=== PATIENT | female | born 1975 | race African-American/Black ===

== ENCOUNTER 2022-10-13 11:21 | Outpatient (REF) | payer MEDICAID, SELFPAY ==
[2022-10-13 17:37] LABS: Anion Gap 17 (12-20); Blood Urea Nitrogen 11 mg/dL (9-16); Calcium 10.3 mg/dL (8.4-10.2); Carbon Dioxide 25 mmol/L (22-29); Chloride 101 mmol/L (96-108); Estimated Glomerular Filt Rate > 60; Glucose Random 80 mg/dL (60-115); Potassium 3.6 mmol/L (3.3-5.1); Sodium 139 mmol/L (135-145)
[2022-10-20 15:28] LABS: Creatinine Random Urine 100 mg/dL (20-275); Metanephrine, Free Rand Ur 67 mcg/g cr (33-192); Normetanephrine, Free Rand Ur 271 mcg/g cr (85-514); Total Metanephrine, Free RU 338 mcg/g cr (155-608)
== END 2022-10-13 11:22 | disposition home or self-care (01) ==
LOC: HO.CHCLDS 11:21
PROVIDERS: Visit Provider Internal Medicine
DX: I10 Essential (primary) hypertension (principal)
CPT/HCPCS: 36415; 80048; 83835

== ENCOUNTER 2022-10-16 09:51 | Outpatient (REF) | payer MEDICAID, SELFPAY ==
[2022-10-23 16:02] LABS: Aldosterone/Renin Ratio 3.8 Ratio (0.9-28.9); Plasma Renin Activity 2.65 ng/mL/h (0.25-5.82)
== END 2022-10-16 09:52 | disposition home or self-care (01) ==
LOC: HO.CHCLDS 09:51
PROVIDERS: Visit Provider Internal Medicine
DX: I10 Essential (primary) hypertension (principal)
CPT/HCPCS: 82088; 82542

== ENCOUNTER → 2022-10-26 09:37 | Outpatient (REF) | payer MEDICAID, SELFPAY ==
--- NOTE | 2022-10-26 09:39 | HM_ITS ---
* Total monitoring time 2 days. * Underlying rhythm is sinus. Average ventricular rate 54/Min. Range 39 to 100/Min. * About 81% of the time, rate < 60/Min. Some strips suggest junctional rhythm. Likely during sleep hours as they are brush cutter. * Rare PVCs. Some couplets. One run of 4 beats. * No significant pauses or AV blocks. * Rapid/fast heartbeat described in diary correlates with sinus rhythm/sinus bradycardia, junctional rhythm as well as PVCs. MTDD
== END ==
LOC: HO.CARD 09:37
PROVIDERS: PCP Internal Medicine; Visit Provider Internal Medicine
DX: R00.1 Bradycardia, unspecified (principal)
CPT/HCPCS: 93225

== ENCOUNTER → 2022-10-26 09:39 | Outpatient (BNV) | payer MEDICAID, SELFPAY | PROVIDERS: PCP Internal Medicine; Visit Provider Internal Medicine | DX: I49.3 Ventricular premature depolarization (principal) | CPT/HCPCS: 93227 ==

== ENCOUNTER 2023-01-19 20:09 | Outpatient (REF) | payer MEDICAID, SELFPAY ==
[2023-01-22 06:23] LABS: HPV mRNA E6/E7 rflx Not Detected (Not Detected)
== END 2023-01-19 20:10 | disposition home or self-care (01) ==
LOC: HO.CHCLNP 20:09
PROVIDERS: Visit Provider Advanced Practice Midwife
DX: Z01.419 Encounter for gynecological examination (general) (routine) without abnormal findings (principal)
CPT/HCPCS: 87624; 88142

== ENCOUNTER 2024-06-08 10:38 | Outpatient (REF) | payer MEDICAID, SELFPAY ==
[2024-06-08 14:45] LABS: Cholesterol 187 mg/dL (<200); HDL Cholesterol 52 mg/dL (>40); LDL Cholesterol Calculated 113 mg/dL (<100); Triglycerides 111 mg/dL (<150)
[2024-06-09 08:27] LABS: HIV AB/AG Nonreactive (Nonreactive); HIV Num 1 0.06 S/CO (0.00-0.99); ~HepC Num1 0.09 S/CO (0.00-0.79); ~Hepatitis C Antibody Nonreactive (Nonreactive)
== END 2024-06-08 10:39 | disposition home or self-care (01) ==
LOC: HO.CHCLDS 10:38
PROVIDERS: Visit Provider Internal Medicine
DX: I10 Essential (primary) hypertension (principal)
CPT/HCPCS: 36415; 80061; 86803; 87389

== ENCOUNTER 2024-09-25 09:47 | Outpatient (REF) | payer SELFPAY ==
--- OUTSIDE RECORDS SUMMARY | 2024-09-25 10:19 | XMS_ITS | Data Portability ---
Author Organization [place] - [facility], Allergy Address [address] [facility] [address] [place] [address] Assessment Encounter Date Assessment Date Assessment LastModified by Organization Details LastModified Time 10/08/2023 10/08/2023 48 year old female present for evaluation of hearing loss. Otologic exam is unremarkable today. Can use mineral oil for itching and should avoid Q tip use. Audiometric testing consistent with SNHL bilaterally but may be suprathreshold. Will retest in 6 months. Can pursue amplification at this time. Copy of hearing test and medical clearance were given along with [facility] health provider sheet. [email or web address] Not available 10/08/2023 14:26:43 Plan of Treatment Reminders Order Date Submit Date Provider Last Modified By Organization Details Last Modified Time Details Appointments None record ed. Lab None record ed. Referral None record ed. Procedures None record ed. Surgeries None record ed. Imaging None record ed. Medication Orders None record ed. Patient TargetsNo targets recorded. Patient InstructionsNo instructions recorded. Reason for Referral None Reported. Results Created Date Observation Date Name Description Value Unit Range Abnormal Flag Note LastModifiedBy Organization Detail LastModifiedTime 10/11/19 24 audio gram No observ ation record ed. [email or web address] Not Available 09/20 16:23:09 Result Notes None recorded. Problems Name Problem SNOMED Code Status Onset Date Resolution Date Notes Provider Name and Address Organization Details Recorded Time Sensorineural hearing loss of bilateral ears 347356727 Active 2023 Lupe card [place] - [facility] 14:00:57 Itching of ear 346273745 Active 2023 ROCKY AQUINO PA-C [address], [address] - [facility] 14:26:50 Problem Notes None recorded. Procedures Surgical History Date Name Laterality Status Provider Name and Address Organization Details Recorded Time 10/08/19 Comp Audio with Tymps - 49069 & 15673 completed Lupe Archer [place] - [facility] 10/08/2023 14:00:48 10/08/19 OAE distortion product, comprehensive - 38978 completed Lupe Archer [place] - [facility] 10/08/2023 14:11:13 Imaging Results None recorded. Procedure Notes None recorded. Medical Equipment None Reported. Medications Name Sig Start Date Stop Date Status Note LastModified by Organization Details LastModified Time econazole nitrate 1 % topical cream APPLY TO THE AFFECTED AREA(S) EVERY MORNING active Not Available Not Available No t Available fluocinolone 0.01 % topical body oil APPLY TOPICALLY TWICE DAILY, MASSAGE INTO ITCHY AREAS OF SCALP active Not Available Not Available No t Available gabapentin 300 mg capsule TAKE ONE CAPSULE BY MOUTH AT BEDTIME active Not Available Not Available No t Available hydrocortison e 2.5 % topical cream APPLY TOPICALLY TO AFFECTED AREA(s) TWICE DAILY active Not Available Not Available No t Available gabapentin 100 mg capsule TAKE ONE CAPSULE EVERY NIGHT AT BEDTIME active Not Available Not Available No t Available naproxen 500 mg tablet TAKE ONE TABLET TWICE DAILY active Not Available Not Available No t Available clindamycin 1 % lotion APPLY TO FACE EVERY MORNING FOR ACNE AND CUSTOMER SUPPORT EXECUTIVE SPOTS ON THE CHEEKS. active Not Available Not Available No t Available hydrochloroth iazide 12.5 mg tablet TAKE ONE TABLET BY MOUTH EVERY MORNING active Not Available Not Available No t Available diclofenac 1 % topical gel APPLY 2 GRAM'S TO AFFECTED AREA(s) TWICE DAILY NEEDED active Not Available Not Available No t Available Vitals Date Recorded Body height Body mass index (BMI) Body weight Provider Name and Address Organization Details Last Updated DateTime 10/08/2023 172.72 cm 28.7 kg/m2 77412.96 g Brenda Zheng [place] - [facility] 10/08/2023 14:15:24 Social History None recorded. Functional Status None recorded. Mental Status None recorded. Family History Nothing Reported. Medical History No medical history recorded. Gynecological HistoryNo gynecological history recorded. Obstetrics History GPAL:G 0 P 0 0 0 0 Past Encounters Encounter ID Performer Location Encounter Start Date Encounter Closed Date Diagnosis/Indication Diagnosis SNOMED-CT Code Diagnosis ICD10 Code Diagnosis Note [id number] ROCKY AQUINO PA-C [facility] [address] [place] [address] 10/08/2023 12:59:12 10/08/2023 14:36:03 Sensorineural hearing loss of bilateral ears 518655840 H90.3 Audiologic al evaluation results: Right ear: Essentiall y mild sensorineu ral hearing loss with excellent word recognitio n. Left ear: Essentiall y mild sensorineu ral hearing loss with excellent word recognitio n. Tympanomet ry: Right Ear:Type A Left Ear:Type A Itching of ear 856099274 L29.8 Health Concerns Section Related Observation LastModified by Organization Detai ls LastModified Time None Recorded Concern Status LastModified by Organization Details LastModified Time None Recorded Advance Directives Directive None Recorded Payers Insurance Date Sequence Insurance Name Policy Number Policy Coyle Covered Member ID Coyle Member ID Guarantor Name 04/07/2024 1 [facility] (O) [id number] Anita [facility] [id number] Notes Date Note Type Note Provider Name and Address Organization Details Recorded Time 10/08/2023 text/html 48 year old female presents for evaluation of hearing loss. She also has itchy ear. Admits to occasional Q tip use. Hearing loss is bilateral without tinnitus and slow over time. ROCKY AQUINO PA-C [address] [place] [address], [id number], [facility] - [facility] 10/08/2023 14:28:29 OBGyn Episode No OBEpisode recorded.
--- OUTSIDE RECORDS SUMMARY | 2024-09-25 10:19 | XMS_ITS | Referral Summary ---
Author Organization [facility] Address [address] [place] [address] Care Team Providers Care Supervisor Sound Technician Name Role Phone Janki Lance Primary Care Provider + [phone] Allergies No known active allergies Medications multivitamin (THERAGRAN) tablet Take 1 tablet by mouth daily. Active acetaminophen (TYLENOL) 325 mg tablet Take 2 tablets (650 mg total) by mouth every 6 hours. 28 tablet 06/06/2020 Active lactulose 10 gram/15 mL solution Take 20 g by mouth once a day. Active cholecalciferol (VITAMIN D3) 1,000 unit tablet Take 1,000 Units by mouth daily. Active ascorbic acid (VITAMIN C ORAL) Active hydroCHLOROthia zide (HYDRODIURIL) 12.5 mg tablet Take 12.5 mg by mouth daily. 10/12/2022 Active clindamycin (CLEOCIN T) 1 % lotionIndicatio ns:Acne vulgaris Apply to face every morning for acne and community health education coordinator spots on the cheeks. 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 Prediabetes 07/15/2020 Umbilical hernia 07/15/2020 Uterine leiomyoma 07/15/2020 Ganglion of right wrist 07/08/2020 Overview (07/08/2020): Added automatically from request for surgery [id number] Latent tuberculosis by blood test 02/13/2019 Resolved Problems Problem Noted Date Diagnosed Date Resolved Date Menorrhagia 07/15/2020 01/06/2022 Dysmenorrhea 06/05/2020 01/06/2022 Overview (12/20/2021): Diagnosis updated to reflect regulatory changes Menorrhagia with irregular cycle 06/04/2020 01/06/2022 Social History Tobacco Use Types Packs/Day Years Used Date Smoking Tobacco: Never Smokeless Tobacco: Never Tobacco Cessation:Counseling Given: Not Answered Alcohol Use Standard Drinks/Week Comments Yes 0 (1 standard drink = 0.6 oz pur e alcohol) Rare Comments No Sex and Gender Information Value Date Recorded Sex Assigned at Female 07/29/2020 2:06 PM EDT Legal Sex Female 4:14 PM EDT Gender Identity Female 07/29/2020 2:06 PM EDT Sexual Orientation Straight 07/29/2020 2: 06 PM EDT Last Filed Vital Signs Vital Sign Reading Time Taken Comments Blood Pressure 112/62 01/06/2022 9:01 AM EDT Pulse 49 06/06/2020 11:00 AM EDT Temperature 36.9 C (98.4 F) 06/06/2020 11:00 AM EDT Respiratory Rate 18 06/06/2020 11:0 0 AM EDT Oxygen Saturation 100% 06/06/2020 11: 00 AM EDT Inhaled Oxygen Concentration - - Weight 80.6 kg (177 lb 12.8 oz) 01/06/2022 9:01 AM EDT Height 165.1 cm (5' 5 ) 06/04/2020 5:32 AM EDT Body Mass Index 29.59 06/04/2020 5:32 AM EDT Plan of Treatment Not on file Procedures * Due to [place] [employer] law, this organization might not be sharing negative HIV tests. Procedure Name Priority Date/Time Associated Diagnosis Comments ISMAEL BILATERAL SCREENING DIGITAL MAMMOGRAM WITH ALHAJI Routine 03/31/2023 9:33 AM EST Encounter for screening mammogram for malignant neoplasm of breast from Last 3 Months or Most Recently Relevant to Health Maintenance Results * Due to [place] [employer] [place] law, this organization might not be sharing negative HIV tests. * ISMAEL Bilateral Screening Digital Mammogram With Alhaji (03/31/2023 9:33 AM EST) Anatomical Region Laterality Modality Breast Bilateral Mammography Narrative 03/31/2023 9:46 AM EST EXAMINATION ISMAEL Bilateral Screening Digital Mammogram With Alhaji. INDICATION Anita Ocasio is a 47 y.o. female and is seen for: ISMAEL Bilateral Screening Digital Mammogram With Alhaji. R2 CAD was used in the interpretation of this study. COMPARISON Prior mammograms dating back to 2020 Bilateral Breast Findings: The breasts have scattered areas of fibroglandular density. No significant masses, calcifications or other abnormalities are seen. IMPRESSION BI-RADS ATLAS category (overall): 1 - Negative MANAGEMENT Routine Screening Mammogram in 1 Year is recommended for bilateral. The patient was entered into a reminder system with a target date for their next mammogram. If this radiology report contains a blank impression section, it is an incomplete radiology report. Please contact the interpreting radiologist or applicable radiology division as soon as possible to obtain the completed interpretation. Joseline Sinclair NP IMG BI PROCEDURES Final Result from Last 3 Months or Most Recently Relevant to Health Maintenance Insurance /[facility] on file [facility] * Guarantor: [employer], Client Account Type Relation to Patient Date of Phone Billing Address Corporate Other Advance Directives Documents on File Type Date Recorded Patient Coconut Jelly Roller Expl anation Health Care Proxy 06/04/2020 5:58 AM * Full Code (Latest Code Status on File) Date Activated Date Inactivated Comments 06/04/2020 5:21 AM 06/06/2020 2:28 PM Healthcare Agents on File Name Relationship Healthcare Agent Relationshi p Communication Fami Adewumi Friend Health Care Agent Care Teams Supervisor Sound Technician Relationship Specialty Start Date End Date Janki Lance [address] [place] [address] PCP - General Internal Medicine 03/31/23
--- OUTSIDE RECORDS SUMMARY | 2024-09-25 10:19 | XMS_ITS | Encounter Summary ---
Author Organization [employer] Address [address] [facility] [address] [place] [address] Care Team Providers Care Drug Safety Associate Name Role Phone Janki Lance MD Primary Care Provider Reason for Visit * Reason Comments Med Refill Encounter Details Date Type Department Care Team ([facility] st Contact Info) Description 09/25/2024 Refill [facility] MED & PEDS [address] [place] [address] Janki Lance MD [address] [place] [address] History of nummular eczema Social History Tobacco Use Types Packs/Day Years Used Date Smoking Tobacco: Never Passive Smoke Exposure: Never Smokeless Tobacco: Never Alcohol Use Standard Drinks/Week Comments Never 0 (1 standard drink = 0.6 oz pur e alcohol) Depression Answer Date Recorded Patient Health Questionnaire-9 Score 0 06/08/2024 Patient Health Questionnaire-9 Score 0 06/08/2024 Last PHQ-9: Questionnaire Data Not on file 0 06/08/2024 Housing Stability Answer Date Recorded What is your housing situation today? I have deisy la 10/07/[address] you li ve. Do you have problems with any of the following? None of the above 10/07/2023 Food Insecurity Answer Date Recorded Within the past 12 months, y ou worried that your food would run out before you got money to buy more: Never True 10/07/2023 Within the past 12 months,th e food you bought just didn't last and you didn't have enough money to get more: Never True Transportation Answer Date Recorded In the past 12 months, has l ack of transportation kept you from medical appts, meetings, work or from getting things needed for daily living? No 10/07/2023 Utilities Answer Date Recorded In the past 12 months, has t he electric, gas, oil or water company threatened to shut off services in your home? No 10/07/2023 Depression Answer Date Recorded Patient Health Questionnaire-2 Score 0 06/08/2024 Internet Access Answer Date Recorded Internet Access Q1 Yes 06/01/2024 Internet Access Q2 Not on file 06/01/2024 Comments No Sex and Gender Information Value Date Recorded Sex Assigned at Female 10/07/2023 6:29 PM EDT Legal Sex Female 6:04 PM EDT Gender Identity Female 10/07/2023 6:04 PM EDT Sexual Orientation Straight 10/07/2023 6: 04 PM EDT documented as of this encounter Plan of Treatment Upcoming Encounters Date Type Department Care Team (Late st Contact Info) Description 10/06/2024 9:30 AM EDT Clinical Support [facility] MED & PEDS [address] [place] [address] 10/27/2024 10:00 AM EDT Office Visit [facility] ADULT DENTAL [address] [place] [address] Arturo Lance 12/04/2024 9:15 AM EDT Office Visit [facility] MED & PEDS [address] [place] [address] Janki Lance MD [address] [place] [address] documented as of this encounter Visit Diagnoses Diagnosis History of nummular eczema documented in this encounter Additional Health Concerns Assessment Noted Time PHQ-9 Depression Total Score: 0 06/09/19 25 9:42 AM EDT documented as of this encounter Care Teams Drug Safety Associate Relationship Specialty Start Date End Date Janki Lance MD [address] [place] [address] PCP - General Internal Medicine 12/04/22 documented as of this encounter
[2024-09-25 14:35] LABS: MANUAL DIFF FLAG NO
[2024-09-25 14:47] LABS: Hematocrit 36.3 % (37.0-47.0); Hemoglobin 12.4 g/dl (12.0-16.0); Imm Gran Abs Auto 0.02 X10*3/uL (0.00-0.03); Imm Gran Pct Auto 0.4 % (0.0-0.4); Lymphocytes Absolute Auto 1.9 X10*3/uL (1.2-4.9); Mean Corpuscular HGB Conc 34.2 g/dl (31.0-35.0); Mean Corpuscular Hemoglobin 28.4 pg (27.0-33.0); Mean Corpuscular Volume 83.1 fL (80.0-98.0); NRBC Abs Auto 0.000 X10*3/uL (0.0-0.012); NRBC Pct Auto 0.0 /100WBC (0.0-0.2); Platelet Count 200 X10*3/uL (160-400); Red Blood Count 4.37 X10*6/uL (4.20-5.50); White Blood Count 5.3 X10*3/uL (4.8-10.8)
[2024-09-25 15:08] LABS: Anion Gap 12 (12-20); Blood Urea Nitrogen 14 mg/dL (9-16); Calcium 9.0 mg/dL (8.4-10.2); Carbon Dioxide 25 mmol/L (22-29); Chloride 105 mmol/L (96-108); Estimated Glomerular Filt Rate > 60; Potassium 3.9 mmol/L (3.3-5.1); Sodium 138 mmol/L (135-145)
== END 2024-09-25 09:48 | disposition home or self-care (01) ==
LOC: HO.CHCLDS 09:47
PROVIDERS: Visit Provider Pediatrics
DX: I10 Essential (primary) hypertension (principal)
CPT/HCPCS: 36415; 80048; 82043; 82570; 85025

== ENCOUNTER 2025-03-19 14:53 | Outpatient (REF) | payer SELFPAY ==
--- OUTSIDE RECORDS SUMMARY | 2025-03-19 14:00 | XMS_ITS | Encounter Summary ---
Author Organization [employer] Address [address] [place] [address] [address] [place] [address] Care Team Providers Care Beading Sawyer Name Role Phone Janki Lance MD Primary Care Provider [phone] Reason for Visit * Reason Comments Vaginitis/Bacterial Vaginosis Encounter Details Date Type Department Care Team ([facility] Contact Info) Description 03/19/2025 2:00 PM EST Office Visit [facility] CHC MED & PEDS [address] [place] [address] Carisa Barraza MD [address] [place] [address] Acute vaginitis (Primary Dx) Social History Tobacco Use Types Packs/Day Years [...] PM EDT documented as of this encounter Last Filed Vital Signs Vital Sign Reading Time Taken Comments Blood Pressure 142/68 03/19/2025 1:44 PM EST Pulse 54 03/19/2025 1:44 PM EST Temperature 36.3 C (97.4 F) 03/19/2025 1:44 PM EST Respiratory Rate 16 03/19/2025 1:44 PM EST Oxygen Saturation 99% 03/19/2025 1:44 PM EST Inhaled Oxygen Concentration - - Weight 78 kg (172 lb) 03/19/2025 1:44 PM EST Height 170.2 cm (5' 7 ) 03/19/2025 1:44 PM EST Body Mass Index 26.94 03/19/2025 1:44 PM EST documented in this encounter Progress Notes * Carisa Barraza MD - 03/19/2025 2:00 PM EST Subjective Patient ID: Anita Ocasio is a 49 y.o. female who presents for Vaginitis/Bacterial Vaginosis. Anita Ocasio presents with symptoms consistent with a yeast infection. She reports vaginal itching and white discharge, which she identified by self- examination. She has a history of yeast infections, with the last occurrence approximately 10 years ago. The current symptoms are similar to herprevious experience with yeast infections. She denies being . The patient also mentions having elevated blood pressure during today's visit, which she attributesto not taking her morning medications due to a busy schedule involving insurance issues, prescription pickup, work obligations, and not having eaten yet. 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 She typically prefers to take her vitamins with food. Additionally, the patient inquired about scheduling her next Pap smear. She had a hysterectomy for fibroids (not cancer-related) and her last Pap smear was performed in 2022, which was normal with noHPV detected. She has a history of abnormal Pap smears prior to her hysterectomy. Medical History - Hypertension, currently on medication - History of yeast infections, last occurrence approximately 10 years ago - History of abnormal Pap smears prior to hysterectomy - Hysterectomy performed for fibroids Surgical History - Hysterectomy for fibroids Medications and Supplements - Blood pressure medication - Did not take this morning due to busy schedule and not having eaten yet. Plans to take when gets up to go to work. - Vitamins - Prefers taking with food. 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 Review of Systems Objective BP (!) 142/68 (BP Location: Left arm, Patient Position: Sitting, BP Cuff Size: Adult) Pulse 54 Temp 97.4 ??F (36.3 ??C) (Oral) Resp 16 Ht 5' 7 (1.702 m) Wt 172 lb (78 kg) SpO2 99% BMI 26.94 kg/m?? Physical Exam Constitutional: General: She is not in acute distress. Appearance: She is not ill-appearing. HENT: Head: Normocephalic and atraumatic. Nose: No congestion. Pulmonary: Effort: Pulmonary effort is normal. No respiratory distress. Breath sounds: Normal breath sounds. Musculoskeletal: Cervical back: Normal range of motion. Neurological: General: No focal deficit present. Mental Status: She is alert. Psychiatric: Mood and Affect: Mood normal. Assessment/Plan Problem List Items Addressed This Visit None Visit Diagnoses Acute vaginitis - Primary Relevant Orders Bacterial Vaginosis Panel Anita Ocasio presents with vaginal yeast infection symptoms including itching and white discharge, with history of yeast infection 10 years ago. Vaginal yeast infection Assessment: Patient reports vaginal itching and white discharge consistent with yeast infection. She has self-examined and identified white discharge. History of similar symptoms 10 years ago. Patient is confident in self-diagnosis based on previous experience. Clinical presentation is consistent with candidal vulvovaginitis. Plan: - Vaginal swab for culture to confirm diagnosis and rule out bacterial infection - Antifungal treatment options discussed: oral medication every 3 days for 3 doses or topical creamnightly for 7 days - Prescription sent to [facility] pharmacy - Patient will be notified through portal if additional findings on culture - Follow up if symptoms do not improve Hypertension Assessment: Blood pressure elevated during visit. Patient reports missing morning antihypertensive medication due to busy schedule dealing with insurance issues and work obligations. Has not eaten yet today which may contribute to stress and elevated readings. Plan: - Patient to resume regular medication schedule when returning home from work - Patient prefers to take medications with food Cervical cancer screening Assessment: Patient inquiring about gynecology follow-up. Last Pap smear performed in 2022 was normal with negative HPV testing. Patient has history of hysterectomy for fibroids and prior abnormal Pap smears before hysterectomy. Per previous provider's recommendation, patient requires continued screening for 25 years post-hysterectomy due to history of abnormal Pap smears. Next screening due in 2025, not 2027 as initially calculated. Plan: - Recall appointment scheduled for December 2025 for repeat Pap smear - Patient to follow up in November or December 2025 - Continued screening recommended given prior abnormal Pap smears before hysterectomy Pap smear appointment scheduled for December 2025. documented in this encounter Plan of Treatment Upcoming Encounters Date Type Department Care Team (Late st Contact Info) Description 04/23/2025 9:30 AM EST Office Visit [facility] ADULT DENTAL [address] [place] [address] Arturo Lance Scheduled Orders Name Type Priority Associated Diagnoses Orde r Schedule Bacterial Vaginosis Panel Microbiology Routine Acute vaginitis Ordered: 03/19/2025 documented as of this encounter Visit Diagnoses Diagnosis Acute vaginitis- Primary Unspecified vaginitis and vulvovaginitis documented in this encounter Additional Health Concerns Assessment Noted Time PHQ-9 Depression Total Score: 0 06/09/19 25 9:42 AM EDT documented as of this encounter Care Teams Beading Sawyer Relationship Specialty Start Date End Date Janki Lance MD [address] [place] [address] PCP - General Internal Medicine 12/04/22 documented as of this encounter
--- OUTSIDE RECORDS SUMMARY | 2025-03-19 17:16 | XMS_ITS | Encounter Summary ---
Author Organization [employer] Address [address] [place] [address] [address] [place] [address] Care Team Providers Care Curriculum Development Specialist Name Role Phone Janki Lance MD Primary Care Provider [phone] Reason for Visit * Reason Onset Date Comments New Patient 10/30/2022 Encounter Details Date Type Department Care Team (Late st Contact Info) Description 10/30/2022 Telephone [facility] MEDICINE [address] [place] [address] Maksim Parish MD [address] [place] [address] New Patient Social History Tobacco Use Types Packs/Day Years Used Date Smoking Tobacco: Never Passive Smoke Exposure: Never Smokeless Tobacco: Never Alcohol Use Standard Drinks/Week Comments Never 0 (1 standard drink = 0.6 oz pur e alcohol) Comments Unknown Sex and Gender Information Value Date Recorded Sex Assigned at Female 10/07/2023 6:29 PM EDT Legal Sex Female 6:04 PM EDT Gender Identity Female 10/07/2023 6:04 PM EDT Sexual Orientation Straight 10/07/2023 6: 04 PM EDT documented as of this encounter Miscellaneous Notes * Telephone Encounter - Adilia Mirza - 10/30/2022 3:35 PM EDT 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 EFFECTIVE SINCE 10/30/2022 documented in this encounter Plan of Treatment Upcoming Encounters Date Type Department Care Team (Late st Contact Info) Description 04/23/2025 9:30 AM EST Office Visit [facility] ADULT DENTAL [address] [place] [address] Arturo Lance documented as of this encounter Visit Diagnoses Not on filedocumented in this encounter Care Teams Curriculum Development Specialist Relationship Specialty Start Date End Date Janki Lance MD [address] [place] [address] PCP - General Internal Medicine 12/04/22 documented as of this encounter
--- OUTSIDE RECORDS SUMMARY | 2025-03-19 17:16 | XMS_ITS | Clinical Summary ---
Author Organization [facility] Address [address] [place] [address] Care Team Providers Care Electric Organ Checker Name Role Phone Janki Lance Primary Care Provider + [phone] Allergies No known active allergies Medications multivitamin [...] to face every morning for acne and science teacher spots on the cheeks. 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 Prediabetes 07/15/2020 Umbilical hernia 07/15/2020 Uterine leiomyoma 07/15/2020 Ganglion of right wrist 07/08/2020 Overview (07/08/2020): Added automatically from request for surgery [id number] Latent tuberculosis by blood test 02/13/2019 Resolved Problems Problem Noted Date Diagnosed Date Resolved Date Menorrhagia 07/15/2020 01/06/2022 Dysmenorrhea 06/05/2020 01/06/2022 Overview (12/20/2021): Diagnosis updated to reflect regulatory changes Menorrhagia with irregular cycle 06/04/2020 01/06/2022 Family History Medical History Relation Name Comments No Known Problems Brother Diabetes Father Diabetes Mother Hypertension Mother No Known Problems Sister Breast cancer Neg Hx Ovarian cancer Neg Hx Uterine cancer Neg Hx Relation Name Status Comments Brother Father Alive Mother Alive Sister Social History Tobacco Use Types Packs/Day Years [...] 06/04/2020 5:32 AM EDT Plan of Treatment Health Maintenance Due Date Last Done Comments Cologuard 1975 Colon Cancer Screening 1975 Colonoscopy 1975 FOBT / Fit Test 1975 Hepatitis C Screening 1975 Sigmoidoscopy 1975 Alcohol/Substance Use Screening 03/22/2024 Depression Screening and Follow-Up 03/22/2024 Social Drivers of Health Annual Screening 03/22/2024 Influenza Vaccine (#1) 2024 12/18/2019, 2018 COVID-19 Vaccine ( season) 2024 05/21/2021, 05/21/2021, 11/15/2020, Additional history exists Mammogram 03/31/2025 03/31/2023, 12/0 07/2021, 07/31/2020 DTaP,Tdap,and Td Vaccines (2 - Td or Tdap) 10/02/2030 10/02/2020 HIV Screening Completed 01/13/2019 Hepatitis B Vaccines Completed 12/18/2019, 09/11/2019, 08/11/2019 Pneumococcal Vaccine: Pediatric (0-5 Years) and At-Risk Patients (6-50 Years) Aged Out No longer eligible based on patient's age to complete this topic Procedures * Due to [place] Etherpad law, this organization might not be sharing negative HIV tests. Procedure Name Priority Date/Time Associated Diagnosis Comments [facility] BILATERAL SCREENING DIGITAL MAMMOGRAM WITH ALHAJI Routine 03/31/2023 9:33 AM EST Encounter for screening mammogram for malignant neoplasm of breast from Last 3 Months or Most Recently Relevant to Health Maintenance Results * Due to [place] Etherpad law, this organization might not be sharing negative HIV tests. * [facility] Bilateral Screening Digital Mammogram With Alhaji (03/31/2023 [...] to obtain the completed interpretation. 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
--- OUTSIDE RECORDS SUMMARY | 2025-03-19 17:16 | XMS_ITS | Encounter Summary ---
Author Organization [employer] Address [address] [place] [address] 7 [place] [address] Care Team Providers Care Coremaker Machine Name Role Phone Janki Lance MD Primary Care Provider [phone] Encounter Details Date Type Department Care Team (Late Contact Info) Description 10/30/2022 Orders Only [facility] [address] [place] [address] Janki Lance MD [address] [place] [address] Primary hypertension (Primary Dx); Junctional rhythm Social History Tobacco Use Types Packs/Day Years [...] Description 04/23/2025 9:30 AM EST Office Visit [facility]ULT [facility] [address] [place] [address] Arturo Lance documented as of this encounter Visit Diagnoses Diagnosis Primary hypertension- Primary Unspecified essential hypertension Junctional rhythm Other specified cardiac dysrhythmias documented in this encounter Care Teams Coremaker Machine Relationship Specialty Start Date End Date Janki Lance MD [address] [place] [phone] PCP - General Internal Medicine 12/04/22 documented as of this encounter
--- OUTSIDE RECORDS SUMMARY | 2025-03-19 17:16 | XMS_ITS | Clinical Summary ---
Author Organization [employer] Address [address] [facility] [address] [place] [address] Care Team Providers Care Call Worker Name Role Phone Janki Lance MD Primary Care Provider [phone] Allergies No known active allergies Medications gabapentin (Neurontin) 100 MG capsuleIndicati ons:Neurodermat itis, localized Take 1 capsule (100 mg) by mouth at bedtime. 90 capsule 3 024 2026 Active Diclofenac Sodium (Voltaren) 1 % gel Use topical BID 100 g 3 024 Active Tirzepatide-Jono ght Management (Zepbound) 2.5 MG/0.5ML solution auto-injectorIn dications:Encou nter for screening mammogram for malignant neoplasm of breast Inject 0.5 mL (2.5 mg) under the skin 1 (one) time per week. 2 mL 1 025 Active hydrocortisone 2.5 % creamIndication s:History of nummular eczema Apply topically 2 times daily. 28.35 g 025 Active senna-docusate sodium (Senokot-S) 8.6-50 MG tabletIndicatio ns:Screening for colon cancer Take 1 tablet by mouth Once per day. 30 tablet 11 03/19/20 25 11:40 AM EST 025 2025 Active losartan-hydroC HLOROthiazide (Hyzaar) 50-12.5 MG tabletIndicatio ns:Throat discomfort,Prim hussain hypertension Take 1 tablet by mouth Once per day. 30 tablet 11 03/19/20 25 11:40 AM EST 025 2025 Active diphenhydrAMINE (BENADryl) 25 MG tabletIndicatio ns:Throat discomfort,Acut e cough Take 1 tablet (25 mg) by mouth if needed at bedtime for itching. 30 tablet 025 Active Zepbound 5 MG/0.5ML solution auto-injectorIn dications:Overw eight INJECT ONE PEN (=5MG) SUBCUTANEOUSLY ONCE A WEEK DIRECTED 2 mL 2 03/19/20 25 11:40 AM EST Active fluconazole (Diflucan) 150 MG tablet Take 1 tablet (150 mg) by mouth every 3rd (third) day. 3 tablet 03/19/20 2:26 PM EST 025 Active Tirzepatide-Jono ght Management (Zepbound) 5 MG/0.5ML solutionIndicat ions:Overweight Inject 5 mg under the skin 1 (one) time per week. 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 Prediabetes 07/15/2020 Umbilical hernia 07/15/2020 Uterine leiomyoma 07/15/2020 Ganglion of right wrist 07/08/2020 Overview (10/12/2023): Added automatically from request for surgery [id number] Latent tuberculosis by blood test 02/13/2019 Encounters Date Type Department Care Team Description 03/19/2025 2:00 PM EST Office Visit [facility] [address] [place], [place] [phone] Carisa Barraza MD Acute vaginitis (Primary Dx) 03/19/2025 Travel 03/14/2025 Refill [facility] [address] [place] [address] Janki Lance MD Overweight 12/21/2024 1:00 PM EDT Office Visit [facility] [address] [place] [address] Janki Lance MD Throat discomfort (Primary Dx); Primary hypertension; Acute cough 12/21/2024 Travel 12/20/2024 Telephone [facility] [address] [place] [address] Janki Lance MD Referral from Last 3 Months Immunizations Immunization Administration Dates Next Due Hep B, adult 12/18/2019,09/11/2019,08/11/2019 Influenza Injectable Quadriv alant Preservative Free IIV4 MDCK 03/02/2023 Influenza injectable quadriv alent preservative free 12/18/2019,12/13/2018 Influenza, Injectable, MDCK, preservative free 12/19/2024,01/05/2024 Tdap 10/02/2020 Family History Medical History Relation Name Comments Diabetes type II Father Diabetes type II Mother Hypertension Mother Relation Name Status Comments Father Mother Social History Tobacco Use Types Packs/Day Years Used Date Smoking Tobacco: Never Passive Smoke Exposure: Never Smokeless Tobacco: Never Tobacco Cessation:Counseling Given: Not Answered Alcohol Use Standard Drinks/Week Comments Never 0 [...] Orientation Straight 10/07/2023 6: 04 PM EDT Last Filed Vital Signs Vital [...] Mass Index 26.94 03/19/2025 1:44 PM EST Plan of Treatment Upcoming Encounters Date Type Department Care Team (Late st Contact Info) Description 04/23/2025 9:30 AM EST Office Visit [facility] [address] [place] [address] Arturo Lance Health Maintenance Due Date Last Done Comments CT Colonography 1977 Colonoscopy 1977 Diabetes: Hemoglobin A1C 1977 FIT 1977 Sigmoidoscopy 1977 Disability Screening 1977 Family Planning (PISQ) 1992 Dental Oral Exam 11/17/2023 05/18/2023, 10/12/2022 Mammogram 03/31/2024 03/31/2023, 12/07/2021, 07/31/2020 COVID-19 Vaccine ( season) 2024 05/21/2021, 11/15/2020 Dental Prophylaxis 11/24/2024 05/23/2024, 0 11/17/2023, 05/18/2023, Additional history exists Dental X-Ray: Bitewings 12/03/2024 12/03/19, 11/17/2023, 10/12/2022 Alcohol/Substance Use Screening 06/08/2025 06/08/2024 Depression Screening 06/08/2025 06/08/2024, 06/09/19 SDOH Screening 06/08/2025 06/08/2024 FOBT 06/20/2025 06/20/2024 Dental X-Ray: Full Mouth 10/13/2025 10/12/2022 Pap Smear 01/19/2026 01/19/2023 Tobacco Screening 03/19/2026 03/19/2025 Colorectal Cancer Screening 06/21/2027 FIT DNA/Cologuard 06/21/2027 06/20/2024 Zoster Vaccines (1 of 2) 06/26/2027 Cervical Cancer Screening 01/20/2028 HPV/Cotest 01/20/2028 01/19/2023 Lipid Panel 06/08/2029 06/08/2024 DTaP/Tdap/Td Vaccines (2 - Td or Tdap) 10/02/2030 10/02/2020 RSV Patients and Patients Aged 60 years or older (1 - 1-dose 75+ series) 2052 Hepatitis B Vaccines Completed 12/18/2019, 09/11/2019, 08/11/2019 HIV Screening Completed 06/08/2024 Hepatitis C Screening Completed 06/08/2024 Influenza Vaccine Completed 12/19/2024, , 03/02/2023, Additional history exists HIB Vaccines Aged Out No longer eligi ble based on patient's age to complete this topic HPV Vaccines Aged Out No longer eligi ble based on patient's age to complete this topic Hepatitis A Vaccines Aged Out No long er eligible based on patient's age to complete this topic IPV Vaccines Aged Out No longer eligi ble based on patient's age to complete this topic Meningococcal B Vaccine Aged Out No l onger eligible based on patient's age to complete this topic Meningococcal Vaccine Aged Out No jose maria g eligible based on patient's age to complete this topic Pneumococcal Vaccine: Pediatrics (0 to 5 Years) and At-Risk Patients (6 to 49) Years Aged Out No longer eligible based on patient's age to complete this topic RSV under 20 months Aged Out No longe r eligible based on patient's age to complete this topic Rotavirus Vaccines Aged Out No longer eligible based on patient's age to complete this topic Procedures Procedure Name Priority Date/Time Associated Diagnosis Comments LAB COLOGUARD COLON CANCER SCREEN Routine 06/20/2024 5:30 AM EDT Screening for colon cancer HEPATITIS C AB W/REFL TO HCV RNA, QN, PCR Routine 06/08/2024 10:39 AM EDT Primary hypertension HIV 1/2 ANTIGEN/ANTIBODY, FOURTH GENERATION W/RFL Routine 06/08/2024 10:39 AM EDT Primary hypertension LIPID PANEL, STANDARD Routine 06/08/2024 10:39 AM EDT Primary hypertension PROPHYLAXIS - ADULT Routine 05/23/2024 9 :00 AM EST BITEWING - SINGLE RADIOGRAPHIC IMAGE Routine 12/03/2023 9:00 AM EDT PERIODIC ORAL EVALUATION - ESTABLISHED PATIENT Routine 05/18/2023 10:00 AM EST HPV MRNA E6/E7 REFLEX TO HPV 16, 18/45 Routine 01/19/2023 9:17 AM EDT PAP SMEAR Routine 01/19/2023 9:17 AM EDT INTRAORAL - COMPLETE SERIES OF RADIOGRAPHIC IMAGES Routine 10/12/2022 10:00 AM EDT from Last 3 Months or Most Recently Relevant to Health Maintenance Results * Cologuard?? colon cancer screening (06/20/2024 5:30 AM EDT) Cologuard Result Negative Negative 06/26/19 5:59 AM EDT [employer] (CLIA #:[id number]) Comment: NEGATIVE TEST RESULT. A negative Cologuard result indicates a low likelihood that a colorectal cancer (CRC) or advanced adenoma (adenomatous polyps with more advanced pre-malignant features) is present. The chance that a person with a negative Cologuard test has a colorectal cancer is less than 1 in 1500 (negative predictive value >99.9%) or has an advanced adenoma is less than 5.3% (negative predictive value 94.7%). These data are based on a prospective cross-sectional study of 10,000 individuals at average risk for colorectal cancer who were screened with both Cologuard and colonoscopy. (Kavon Darnell et al, N Engl J Med 2014;370(14):7335-3088) The normal value (reference range) for this assay is negative. COLOGUARD RE-SCREENING RECOMMENDATION: Periodic colorectal cancer screening is an important part of preventive healthcare for asymptomatic individuals at average risk for colorectal cancer. Following a negative Cologuard result, the [place] Cancer Society and U.S. Multi-Society Task Force screening guidelines recommend a Cologuard re-screening interval of 3 years. References: [place] [employer] Guideline for Colorectal Cancer Screening: https://www.cancer.org/cancer/cqjdv-htqhsy-urbqgx/zdpjauzjj-fqjvprciy-joyymqe/ac s-rec ommendations.html.; Dominik VO, Cristal SONI, Lori GarciaK, Colorectal Cancer Screening: Recommendations for Physicians and Patients from the U.S. Multi-Society Task Force on Colorectal Cancer Screening , Am J Gastroenterology 2017; 112:2400-8857. TEST DESCRIPTION: Composite algorithmic analysis of stool DNA-biomarkers with hemoglobin immunoassay. Quantitative values of individual biomarkers are not reportable and are not associated with individual biomarker result reference ranges. Cologuard is intended for colorectal cancer screening of adults of either sex, 45 years or older, who are at average-risk for colorectal cancer (CRC). Cologuard has been approved for use by the U.S. FDA. The performance of Cologuard was established in a cross sectional study of average-risk adults aged 50-84. Cologuard performance in patients ages 45 to 49 years was estimated by sub-group analysis of near-age groups. Colonoscopies performed for a positive result may find as the most clinically significant lesion: colorectal cancer [4.0%], advanced adenoma (including sessile serrated polyps greater than or equal to 1cm diameter) [20%] or non- advanced adenoma [31%]; or no colorectal neoplasia [45%]. These estimates are derived from a prospective cross-sectional screening study of 10,000 individuals at average risk for colorectal cancer who were screened with both Cologuard and colonoscopy. (Kavon Payne al, N Engl J Med 2014;370(14):2767-3165.) Cologuard may produce a false negative or false positive result (no colorectal cancer or precancerous polyp present at colonoscopy follow up). A negative Cologuard test result does not guarantee the absence of CRC or advanced adenoma (pre-cancer). The current Cologuard screening interval is every 3 years. ([place] Cancer Society and U.S. Multi-Society Task Force). Cologuard performance data in a 10,000 patient pivotal study using colonoscopy as the reference method can be accessed at the following location: www.Cardio control/results. Additional description of the Cologuard test process, warnings and precautions can be found at www.cologuard.com. Stool specimen (specimen) 06/20/2024 5:30 AM EDT 06/21/2024 12:01 PM EDT us Janki Lance MD LAB MOLECULAR DIAGNOSTICS O RDERABLES Final Result Performing Organization Address City/[facility]/ZIP Co de Phone Number [employer] (CLIA #:[id number]) [address] [place] [address], * Hepatitis C Antibody with Reflex to HCV, RNA, Quantitative, Real-Time PCR (06/08/2024 10:39 AM EDT) Hepatitis C Antibody Nonreactive Nonreactive [facility] Comment:Antibodies to HCV no t detected; does not exclude early acuteHCV infection. Blood Venous blood specimen / Unknown 06/08/2024 10:39 AM EDT 06/08/2024 2:17 PM EDT us Janki Lance MD LAB BLOOD ORDERABLES Final Result Performing Organization Address City/[facility]/ZIP Co de Phone Number [facility] [address] [place] [phone] * HIV-1/2 Antigen and Antibodies, Fourth Generation, with Reflexes (06/08/2024 10:39 AM EDT) HIV AB/AG Nonreactive Nonreactive [facility] Comment:HIV-1 p24 Ag and/or HIV-1/HIV-2 Ab not detected.A test result that is nonreactive does not exclude thepossibility of exposure to or infection with HIV-1 and/orHIV-2. Nonreactive results in this assay for individualswith prior exposure to HIV-1 and/or HIV-2 may be due toantigen and antibody levels that are below the limit ofdetection of this assay.[employer] HIV Ag/Ab Combo assay result andsupplemental assay results should be interpreted inconjunction with the patient's clinical presentation,history and other laboratory results. If the results areinconsistent with clinical evidence, additional testing issuggested to confirm the result. Blood Venous blood specimen / Unknown 06/08/2024 10:39 AM EDT 06/08/2024 2:17 PM EDT us Janki Lance MD LAB BLOOD ORDERABLES Final Result [facility] [address] [place] [phone] * (ABNORMAL) Lipid Panel, Standard (06/08/2024 10:39 AM EDT) Triglycerides 111 <150 mg/dL [facility] Comment:Desirable Triglyceri de: less than 150 mg/dLBorderline High Triglyceride 150-199 mg/dLHigh Triglyceride: 200-499 mg/dLVery High Triglyceride: greater than or equal to 5OO mg/dL Cholesterol 187 <200 mg/dL [facility] Comment:Desirable Cholestero l: less than 200 mg/dLBorderline High Cholesterol: 200-239 mg/dLHigh Cholesterol: greater than 239 mg/dL LDL Cholesterol Calculated 113(H) <100 mg/dL [facility] Comment:Desirable LDL: less than 100 mg/dLNear Optimal/Above Optimal LDL: 110- 129 mg/dLBorderline High LDL: 130-159 mg/dLHigh LDL: 160-189 mg/dLVery High LDL: greater than or equal to 190 mg/dL HDL Cholesterol 52 >40 mg/dL [facility] Comment:Desirable HDL: great er than 40 mg/dL Note: This HDL assay may give artificially low results in patients with liver disease. Blood Venous blood specimen / Unknown 06/08/2024 10:39 AM EDT 06/08/2024 2:17 PM EDT us Janki Lance MD LAB BLOOD ORDERABLES Final Result [facility] [address] [place] [phone] * HPV mRNA E6/E7 w/Reflex to HPV Genotypes 16, 18/45 (01/19/2023 9:17 AM EDT) HPV nRNA E6/E7 Not Detected Not Detected [facility] Comment:Methodology: Transcr iption-Mediated AmplificationThis assay detects E6/E7 viral messenger RNA (mRNA) from 14high-risk HPV types (16,18,31,33,35,39,45,51,52,56,58,59,66,68).Cervical sources are required for HPV testing.If a vaginal source from a patient who has had atotal hysterectomy with removal of cervix wassubmitted, please contact the testing laboratoryfor alternative testing options.For additional information, please refer tohttp://education.The Loadown/faq/DWL546o0(This link if provided for information/educational purposes only.)THIS TEST WAS PERFORMED AT:[employer] [place] [phone] REYNA MD HPV mRNA E6/E7 TNP [facility] HPV 16 RNA [facility] HPV 18/45 RNA [facility] 01/19/2023 9:17 AM EDT 01/20/2023 9:00 AM EDT us Noe Fan CNM LAB CYTOLOGY ORDERABLES F inal Result [facility] [address] [place] [phone] * Pap Smear (01/19/2023 9:17 AM EDT) 01/19/2023 9:17 AM EDT 01/20/2023 9:00 AM EDT Narrative [facility] - 01/28/2023 11:10 AM EST ----- ------- Name: HECTOR OCASIO Age/Sex: 47/F : 1975 Unit#: [id number] Attend Dr: NOE FAN CNM Re01/19/23 Status: DEP [facility]ch: ----- ------- SPEC : [id number] RECD: 01/20/23 STATUS: XI CASTILLO NUM: [id number] SANTHOSH: 01/19/[address]: NOE FAN CNM ENTERED: 01/20/23 SP TYPE: Pap Smr OTHR DR: ORDERED: Pap Smear Interpretation Satisfactory for evaluation. No endocervical cells seen. Cytolysis noted. Negative for intraepithelial lesion or malignancy. HPV mRNA E6/E7: NOT DETECTED This assay detects E6/E7 viral messenger RNA (mRNA) from 14 high-risk HPV types (16, 18, 31, 33, 35, 39, 45, 51, 52, 56, 58, 59, 66, 68) HPV testing performed by [facility], [facility], [place]. See reference laboratory pion of the EMR for entire report. Clinical Information LMP: Unknown date Previous PAP test: Unknown date/findings Material Received ThinPrep-Cervical ----- ------- Signed (signature on file) JANAK Carter (ASCP) 01/28/23 1110 ----- ------- END OF REPORT Noe Fan [facility] LAB CYTOLOGY ORDERABLES F inal Result [facility] [address] [place] [phone] from Last 3 Months or Most Recently Relevant to Health Maintenance Insurance [employer] PPO Care Teams Call Worker Relationship Specialty Start Date End Date Janki Lance MD [address] [place] [phone] PCP - General Internal Medicine 12/04/22
--- OUTSIDE RECORDS SUMMARY | 2025-03-19 17:16 | XMS_ITS | Encounter Summary ---
Author Organization [employer] Address [address] [place] [address] [address] [place] [address] Care Team Providers Care Swiss Type Screw Machine Operator Name Role Phone Janki Lance MD Primary Care Provider [phone] Reason for Visit * Reason Onset Date Comments New Patient 12/24/2022 Encounter Details Date Type Department Care Team (Late st Contact Info) Description 12/24/2022 Telephone [facility] [address] [place] [address] Janki Lance MD [address] [place] [address] New Patient Social History Tobacco Use Types [...] * Telephone Encounter - Adilia Mirza - 12/24/2022 3:48 PM EDT GERA Tafoya Contacted Hollie MALDONADO to verify if pt went under the care of PCP Dr. Casi Borden [place] responded she is his pt and Confirmed. documented in this encounter Plan of Treatment Upcoming Encounters Date Type Department Care Team (Late st Contact Info) Description 04/23/2025 9:30 AM EST Office Visit [facility] [address] [place] [address] Arturo Lance documented as of this encounter Visit Diagnoses Not on filedocumented in this encounter Care Teams Swiss Type Screw Machine Operator Relationship Specialty Start Date End Date Janki Lance MD [address] [place] [address] PCP - General Internal Medicine 12/04/22 documented as of this encounter
--- OUTSIDE RECORDS SUMMARY | 2025-03-19 17:17 | XMS_ITS | Encounter Summary ---
Author Organization [employer] Address [address] [place] [address] 7 [place] [address] Care Team Providers Care Machine Tool Operator Name Role Phone Janki Lance MD Primary Care Provider [phone] Reason for Visit * Reason Comments Med Refill Encounter Details Date Type Department Care Team ([facility] st Contact Info) Description 03/14/2025 Refill [facility] MED & PEDS [address], [place] [phone] Janki Lance MD [address] [place] [address] Overweight Social History Tobacco Use Types Packs/Day Years [...] Upcoming Encounters Date Type Department Care Team ([facility] st Contact Info) Description 04/23/2025 9:30 AM EST Office Visit [facility] [address] [place] [address] Arturo Lance documented as of this encounter Visit Diagnoses Diagnosis Overweight documented in this encounter Additional Health Concerns Assessment Noted Time PHQ-9 Depression Total Score: 0 06/09/19 25 9:42 AM EDT documented as of this encounter Care Teams Machine Tool Operator Relationship Specialty Start Date End Date Janki Lance MD [address] [place] [address] PCP - General Internal Medicine 12/04/22 documented as of this encounter
--- OUTSIDE RECORDS SUMMARY | 2025-03-19 17:17 | XMS_ITS | Encounter Summary ---
Author Organization [facility] Address [address] [place] [address] Care Team Providers Care Communication Lecturer Name Role Phone Janki Lance Primary Care Provider + [phone] Reason for Referral * Diagnostic Imaging (Emergency) - Closed Specialty Diagnoses / Procedures Referred By Ahsan jean-baptiste Referred To Contact Radiology Diagnoses Gross hematuria Procedures US Kidney Complete and Bladder Lynn Bhakta NP Phone: tel: fax: [facility] Interventional Radiology [address] [place] [address] Phone: tel: fax: Referral ID Status Reason Start Date Expiration Date Visits Re quested Visits Authorized [id number] Closed 01/08/2020 01/07/2021 1 1 Encounter Details Date Type Department Care Team (Late st Contact Info) Description 01/04/2020 Community Orders [facility] Link [address] [place] [address] Lynn Bhakta NP [address] [place] [address] Gross hematuria (Primary Dx) Social History Tobacco Use Types Packs/Day Years Used Date Smoking Tobacco: Never Smokeless Tobacco: Never Alcohol Use Standard Drinks/Week Comments Never 0 (1 standard drink = 0.6 oz pur e alcohol) Comments No Sex and Gender Information Value Date Recorded Sex Assigned at Female 07/29/2020 2:06 PM EDT Legal Sex Female 4:14 PM EDT Gender Identity Female 07/29/2020 2:06 PM EDT Sexual Orientation Straight 07/29/2020 2: 06 PM EDT documented as of this encounter Plan of Treatment Not on file documented as of this encounter Results * Due to [place] state law, this organization might not be sharing negative HIV tests. * US Kidney Complete and Bladder (01/09/2020 2:40 PM EDT) Anatomical Region Laterality Modality Body N/A Ultrasound 01/10/2020 2:41 AM EDT Impressions 01/10/2020 2:44 AM EDT Impression: 1. Normal renal ultrasound 2. Enlarged lobulated multi fibroid uterus. Communication: Per written report. [id number] Narrative 01/10/2020 2:44 AM EDT Examination: Renal ultrasound. Indication: Bacteriuria. Hematuria. Flank pain Technique: Real-time sonographic evaluation of the kidneys and bladder with color Doppler and pre and post voiding bladder volume calculation is performed and textile designs sales representative static images and cine captures are submitted. Comparison: CT 11/10/2019 Findings: RIGHT KIDNEY: 9.8 cm. Normal parenchyma without solid mass, hydronephrosis, or sonographically evident nephrolithiasis. Patent major vasculature. LEFT KIDNEY: 10.3 cm. Normal parenchyma without solid mass, hydronephrosis, or sonographically evident nephrolithiasis. Patent major vasculature. BLADDER: Distended to a volume of 114 mL. Neither ureteral jet is seen. No bladder wall thickening or bladder calculus. Complete bladder emptying with a post voiding residual calculated at 6 mL. OTHER: Enlarged lobulated multi fibroid uterus, not formally evaluated, similar to prior CT. Procedure Note DorethaOralia carmona MD - 01/10/2020 Examination: Renal ultrasound. Indication: Bacteriuria. Hematuria. Flank pain Technique: Real-time sonographic evaluation of the kidneys and bladderwith color Doppler and pre and post voiding bladder volume calculation isperformed and textile designs sales representative static images and cine captures aresubmitted. Comparison: CT 11/10/2019 Findings: RIGHT KIDNEY: 9.8 cm. Normal parenchyma without solid mass,hydronephrosis, or sonographically evident nephrolithiasis. Patent majorvasculature. LEFT KIDNEY: 10.3 cm. Normal parenchyma without solid mass,hydronephrosis, or sonographically evident nephrolithiasis. Patent majorvasculature. BLADDER: Distended to a volume of 114 mL. Neither ureteral jet is seen.No bladder wall thickening or bladder calculus. Complete bladder emptyingwith a post voiding residual calculated at 6 mL. OTHER: Enlarged lobulated multi fibroid uterus, not formally evaluated,similar to prior CT. IMPRESSION: Impression: 1. Normal renal ultrasound 2. Enlarged lobulated multi fibroid uterus. Communication: Per written report. [id number] us Lynn Bhakta PUBLIC HEALTH EDUCATOR IMG US PROCEDURES Final Result documented in this encounter Visit Diagnoses Diagnosis Gross hematuria- Primary Gross hematuria documented in this encounter Care Teams Communication Lecturer Relationship Specialty Start Date End Date Janki Lance [address] [place] [id number] PCP - General Internal Medicine 03/31/23 documented as of this encounter
--- OUTSIDE RECORDS SUMMARY | 2025-03-19 17:17 | XMS_ITS | Encounter Summary ---
Author Organization [employer] Address [address] [place] [address] 7 [place] [address] Care Team Providers Care Senior Front End Web Developer Name Role Phone Janki Lance MD Primary Care Provider [phone] Encounter Details Date Type Department Care Team (Late st Contact Info) Description 06/03/2023 Orders Only [facility] MED & PEDS [address] [place] [address] Janki Lance MD [address] [place] [address] Social History Tobacco Use Types Packs/Day Years [...] Description 04/23/2025 9:30 AM EST Office Visit [facility] ADULT DENTAL [address] [place] [address] Arturo Lance documented as of this encounter Visit Diagnoses Not on filedocumented in this encounter Care Teams Senior Front End Web Developer Relationship Specialty Start Date End Date Janki Lance MD [address] [place] [address] PCP - General Internal Medicine 12/04/22 documented as of this encounter
--- OUTSIDE RECORDS SUMMARY | 2025-03-19 17:17 | XMS_ITS | Encounter Summary ---
Author Organization [employer] Address [address] [place] [address] 7 [place] [address] Care Team Providers Care Inside Sales Advisor Name Role Phone Janki Lance MD Primary Care Provider [phone] Reason for Visit * Reason Comments Med Refill Encounter Details Date Type Department Care Team ([facility] st Contact Info) Description 12/14/2024 Refill [facility] CHC MED & PEDS [address] [place], [place] [phone] Janki Lance MD [address] [place] [address] Primary hypertension; Overweight Social History Tobacco Use Types Packs/Day [...] Description 04/23/2025 9:30 AM EST Office Visit [facility] CH[facility] ADULT DENTAL [address] [place] [address] Arturo Lance documented as of this encounter Visit Diagnoses Diagnosis Primary hypertension Unspecified essential hypertension Overweight documented in this encounter Additional Health Concerns Assessment Noted Time PHQ-9 Depression Total Score: 0 06/09/19 25 9:42 AM EDT documented as of this encounter Care Teams Inside Sales Advisor Relationship Specialty Start Date End Date Janki Lance MD [address] [place] [address] PCP - General Internal Medicine 12/04/22 documented as of this encounter
--- OUTSIDE RECORDS SUMMARY | 2025-03-19 17:17 | XMS_ITS | Encounter Summary ---
Author Organization [employer] Address [address] [facility] [address] [place] [address] Care Team Providers Care Mechanical Design Technician Name Role Phone Janki Lance MD Primary Care Provider [phone] Encounter Details Date Type Department Care Team (Latest Contact Info) Description 03/19/2025 Travel Social History Tobacco Use Types Packs/Day Years [...] 9:30 AM EST Office Visit [facility] ADULT DENTAL [address] [place] [address] Arturo Lance documented as of this encounter Visit Diagnoses Not on filedocumented in this encounter Additional Health Concerns Assessment Noted Time PHQ-9 Depression Total Score: 0 06/09/19 25 9:42 AM EDT documented as of this encounter Care Teams Mechanical Design Technician Relationship Specialty Start Date End Date Janki Lance MD [address] [place] [address] PCP - General Internal Medicine 12/04/22 documented as of this encounter
[2025-03-20 08:12] LABS: Bacterial Vaginosis PCR NEGATIVE (Negative); Candida Group PCR NOT DETECTED (Not Detect); Candida glab krusei PCR NOT DETECTED (Not Detect); Trichomonas vaginalis PCR NOT DETECTED (Not Detect)
== END 2025-03-19 14:54 ==
LOC: HO.CHCLNP 14:53
PROVIDERS: Visit Provider Family Medicine
DX: N76.0 Acute vaginitis (principal)
CPT/HCPCS: 81515